=== PATIENT | female | born 1960 | race Asian ===

== ENCOUNTER 2020-02-06 06:20 | Emergency (ER) | payer OTHER ==
[~2020-02-06] VITALS: Ht 162.6 cm; Wt 63.5 kg
--- NOTE | 2020-02-06 06:36 | NUR ---
ED Nurse Note: pt presents to ED c/o dizziness and WHITE that started when she woke up 2 hours ago, it led to her having many episodes of vomiting. pt states that it feels like the room is spinning, she needed a wheelchair assist because she felt weak on her feet, this is abnormal for her. pt denies taking any meds [employer], reports a h/o vertigo
[2020-02-06 06:38] VITALS: BP 137/77
[2020-02-06] MEDS ORDERED: Ondansetron ODT 8mg tab ORAL ONE (06:45)
[2020-02-06] MEDS ORDERED: Meclizine 25mg tab ORAL ONE (06:45)
[2020-02-06] MEDS ORDERED: MECLIZINE HCL25 MG ORAL (06:45)
--- NOTE | 2020-02-06 06:45 | Emergency Room Report ---
History of Present Illness General Chief Complaint: Dizziness Source: Patient Present Illness HPI 59-year-old female presents with another episode of vertigo she has a history of vertigo she states that today she woke up got up from bed around 6 AM felt the room violently spinning, severity was severe, lasting minutes, alleviating factors appear to be lying still and lying down aggravating factors are sudden movements she endorses nausea, no chest pain or shortness of breath patient presents for evaluation Allergies: Coded Allergies: No Known Allergies (Unverified , 02/06/20) Patient History Past Medical History: see triage record Reviewed Nursing Documentation: PMH: Agreed; PSxH: Agreed Review of Systems All Other Systems: negative except mentioned in HPI Physical Exam Vital Signs Date Time Temp Pulse Resp B/P (MAP) Pulse Ox O2 Delivery O2 Flow Rate FiO2 02/06/20 06:24 97.5 64 16 137/77 (97) 97 Room Air Sp02 EP Interpretation: reviewed, normal General Appearance: well appearing, no apparent distress, alert Head: normocephalic, atraumatic Eyes: bilateral eye PERRL, bilateral eye EOMI ENT: uvula midline, moist mucus membranes Neck: supple, thyroid normal, supple/symm/no masses Respiratory: lungs clear, no respiratory distress, no retraction, no accessory muscle use Cardiovascular #1: normal peripheral pulses, regular rate, rhythm, no edema, no gallop, no murmur Gastrointestinal: non tender, soft, no guarding, no rebound Musculoskeletal: normal inspection Neurologic: alert, motor strength/tone normal, director social III-XII nml as tested, oriented x3, cerebellar normal, responsive, nystagmus - Fatigable nystagmus to the right, normal gait, no pronator, other - Romberg negative Psychiatric: mood/affect normal Skin: no rash, warm/dry Medical Decision Making Diagnostic Impression: Primary Impression: Dizziness Additional Impression: Otitis media Qualified Codes: H65.191 - Other acute nonsuppurative otitis media, right ear ER Course 59-year-old female presents with dizziness that started at 6 AM aggravated positionally, differential diagnosis includes stroke, BPPV, otitis media Patient found to have some fluid, patient given Augmentin, patient also given meclizine, patient with resolution/improvement of her symptoms Patient able to ambulate better, counseled patient will provide antibiotics We will provide meclizine Strict return cautions were discussed no evidence of posterior stroke disposition home with return precautions follow-up with PCP Laboratory Tests Test 02/06/20 07:05 White Blood Count 8.1 K/UL (4.8-10.8) Red Blood Count 4.26 M/UL (4.20-5.40) Hemoglobin 13.8 G/DL (12.0-16.0) Hematocrit 40.6 % (37.0-47.0) Mean Corpuscular Volume 95 FL (80-99) Mean Corpuscular Hemoglobin 32.4 PG (27.0-31.0) H Mean Corpuscular Hemoglobin Concent 33.9 G/DL (32.0-36.0) Red Cell Distribution Width 10.6 % (11.6-14.8) L Platelet Count 228 K/UL (150-450) Mean Platelet Volume 5.8 FL (6.5-10.1) L Neutrophils (%) (Auto) 69.3 % (45.0-75.0) Lymphocytes (%) (Auto) 22.6 % (20.0-45.0) Monocytes (%) (Auto) 5.8 % (1.0-10.0) Eosinophils (%) (Auto) 1.0 % (0.0-3.0) Basophils (%) (Auto) 1.4 % (0.0-2.0) Prothrombin Time 9.6 SEC (9.30-11.50) Prothrombin Time INR 0.9 (0.9-1.1) Activated Partial Thromboplast Time 24 SEC (23-33) Sodium Level 140 MMOL/L (136-145) Potassium Level 4.1 MMOL/L (3.5-5.1) Chloride Level 106 MMOL/L (98-107) Carbon Dioxide Level 22 MMOL/L (21-32) Anion Gap 13 mmol/L (5-15) Blood Urea Nitrogen 21 mg/dL (7-18) H Creatinine 1.1 MG/DL (0.55-1.30) Estimate Glomerular Filtration Rate 50.7 mL/min (>60) Glucose Level 121 MG/DL (74-106) H Calcium Level 9.0 MG/DL (8.5-10.1) Total Bilirubin 0.3 MG/DL (0.2-1.0) Aspartate Amino Transferase (AST) 25 U/L (15-37) Alanine Aminotransferase (ALT) 30 U/L (12-78) Alkaline Phosphatase 88 U/L (46-116) Troponin I 0.011 ng/mL (0.000-0.056) Total Protein 7.8 G/DL (6.4-8.2) Albumin 3.4 G/DL (3.4-5.0) Globulin 4.4 g/dL Albumin/Globulin Ratio 0.8 (1.0-2.7) L Rhythm Strip Diag. Results Rhythm Strip Time: 08:02 EP Interpretation: yes Rate: 66 Rhythm: NSR, no PVC's, no ectopy CT/MRI/US Diagnostic Results CT/MRI/US Diagnostic Results : Impression Preliminary Findings Only See Final Report For Complete Findings CT HEAD Without Contrast: No acute intracranial process. Chronic volume loss in the bifrontal lobes. Fluid in the right mastoid air cells. Radiologist: Nitish Lopez M.D. Study ready at 07:29 and initial results transmitted at 07:41 Last Vital Signs Date Time Temp Pulse Resp B/P (MAP) Pulse Ox O2 Delivery O2 Flow Rate FiO2 02/06/20 06:38 64 16 Room Air 02/06/20 06:38 97.5 137/77 97 Disposition: HOME, SELF-CARE Condition: Stable Scripts Amoxicillin/Potassium Clav 875-125* (AUGMENTIN 875-125 TABLET*) 1 Each Tablet 1 TAB ORAL TWICE A DAY, #20 TAB Prov: Shiv Garrison MD 02/06/20 Meclizine Hcl* (MECLIZINE*) 25 Mg Tablet 25 MG ORAL THREE TIMES A DAY PRN for for dizziness, #30 TAB Prov: Shiv Garrison MD 02/06/20 Referrals: [facility] R[facility] Patient Instructions: Otitis Media With Effusion, Vertigo Additional Instructions: The patient was provided with discharge instructions, notified to follow-up with a primary care doctor and or specialist in the next 24-48 hours, and to return to the ED if they have worsening of their symptoms. Please note that this report is being documented using [employer] technology. This can lead to erroneous entry secondary to incorrect interpretation by the dictating instrument. Shiv Garrison MD 10, 2020 06:45
[2020-02-06] MEDS ORDERED: DiphenhydrAMINE 50mg/ml Inj IVP ONE (07:00)
[2020-02-06] MEDS ORDERED: Metoclopramide 10mg/2ml Inj IVP ONE (07:00)
--- NOTE | 2020-02-06 07:07 | NUR ---
HAND-OFF: Report given to MEHUL Richey.
--- NOTE | 2020-02-06 07:10 | NUR ---
ED Nurse Note: Pt taken to CT.
--- NOTE | 2020-02-06 07:25 | NUR ---
ED Nurse Note: Pt returned from CT.
[2020-02-06 07:27] LABS: BASOPHILS % (AUTO) 1.4 % (0.0-2.0); HEMATOCRIT 40.6 % (37.0-47.0); HEMOGLOBIN 13.8 G/DL (12.0-16.0); LYMPHOCYTES % (AUTO) 22.6 % (20.0-45.0); MEAN CORPUSCULAR VOLUME 95 FL (80-99); MONOCYTES % (AUTO) 5.8 % (1.0-10.0); NEUTROPHILS % (AUTO) 69.3 % (45.0-75.0); PLATELET COUNT 228 K/UL (150-450); RED BLOOD COUNT 4.26 M/UL (4.20-5.40); RED CELL DISTRIBUTION WIDTH 10.6 % (11.6-14.8); WHITE BLOOD COUNT 8.1 K/UL (4.8-10.8)
[2020-02-06 07:33] LABS: INR 0.9 (0.9-1.1)
[2020-02-06 07:40] LABS: ANION GAP 13 mmol/L (5-15); BLOOD UREA NITROGEN 21 mg/dL (7-18); CARBON DIOXIDE 22 MMOL/L (21-32); CHLORIDE 106 MMOL/L (98-107); CREATININE 1.1 MG/DL (0.55-1.30); POTASSIUM 4.1 MMOL/L (3.5-5.1); SODIUM 140 MMOL/L (136-145)
--- NOTE | 2020-02-06 07:42 | Diagnostic Imaging Report ---
Indications: Altered mental status Technique: Spiral acquisitions obtained through the brain. Angled axial and coronal 5 x 5 mm slices were reconstructed. Total dose length product 1018 mGycm. CTDI vol(s) 53 mGy. Dose reduction achieved using automated exposure control Comparison: None. Findings: The ventricles are normal in caliber. There is mild age-related frontal volume loss. No acute intracranial hemorrhage or edema. No mass effect or midline shift. There is some periventricular deep white matter low-attenuation, consistent with chronic microvascular ischemic change. Normal davis-white differentiation otherwise. There is chronic appearing right-sided mastoid sclerosis. There is minimal sphenoid sinus mucosal disease. The orbits are unremarkable. Impression: Mild age-related volume loss. Negative for acute intracranial bleed or mass effect Minimal sinus and right mastoid disease This agrees with the preliminary interpretation provided overnight by [facility]. The CT scanner at [facility] is accredited by the [employer] and the scans are performed using protocols designed to limit radiation exposure to as low as reasonably achievable to attain images of sufficient resolution adequate for diagnostic evaluation.
[2020-02-06 07:45] LABS: ALANINE AMINOTRANSFERASE 30 U/L (12-78); ALBUMIN 3.4 G/DL (3.4-5.0); ALBUMIN/GLOBULIN RATIO 0.8 (1.0-2.7); ALKALINE PHOSPHATASE 88 U/L (46-116); ASPARTATE AMINO TRANSFERASE 25 U/L (15-37); BILIRUBIN,TOTAL 0.3 MG/DL (0.2-1.0)
[2020-02-06] MEDS ORDERED: Augmentin 875mg Tab ORAL ONE (07:45)
[2020-02-06] MEDS ORDERED: AUGMENTIN 875-1 EAC1 ORAL (08:02)
--- NOTE | 2020-02-06 08:18 | NUR ---
ER DISCHARGE NOTE: Patient is cleared to be discharged per ERMD, pt is aox4, on room air, with stable vital signs. pt was given dc and prescription instructions, pt was able to verbalize understanding, pt id band and iv site removed without complications. pt is able to ambulate with steady gait. pt took all belongings. Pt being picked up by . Dr Garrison saw pt walking and ok to D/C.
[2020-02-06 08:19] VITALS: BP 133/75
== END 2020-02-06 08:19 | disposition home or self-care (01) ==
LOC: EMR 06:45
DX: R42 Dizziness and giddiness (principal); H65.191 Other acute nonsuppurative otitis media, right ear
CPT/HCPCS: 36415; 70450; 80053; 84484; 85025; 85610; 85730; 96361; 96374; 96375; 99284; J1200; J2765; J7030; Q0162; S0028

== ENCOUNTER 2020-11-29 20:42 | Emergency (ER) | payer OTHER ==
[~2020-11-29] VITALS: Ht 162.6 cm; Wt 61.2 kg
[~2020-11-29 20:42] MED LIST: AUGMENTIN 875-1 EAC1 ORAL; BENTYL10 MG ORAL; MECLIZINE HCL25 MG ORAL; PEPCID20 MG ORAL; ZOFRAN ODT4 MG ORAL
--- NOTE | 2020-11-29 21:07 | Emergency Room Report ---
History of Present Illness General Chief Complaint: Lower Extremity Injury Present Illness HPI 60-year-old female here with left ankle pain after mechanical fall earlier this morning. Patient says that she fell and it with the rolled her left ankle. She said that she heard a "pop" and has been unable to walk since then. She has tried compression and ice and elevation without much relief. No focal numbness or weakness. She did not hit her head or lose consciousness when she fell. 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 COVID-19 Screening: Negative COVID-19 COVID-19 Testing Source: [place] Nursing Documentation-[facility] Past Medical History Deferred: Patient Unconscious Review of Systems All Other Systems: negative except mentioned in HPI Physical Exam Vital Signs Date Time Temp Pulse Resp B/P (MAP) Pulse Ox O2 Delivery O2 Flow Rate FiO2 11/29/20 20:54 98.4 65 20 143/62 (89) 100 Room Air Sp02 EP Interpretation: reviewed, normal General Appearance: no apparent distress, alert, non-toxic Head: normocephalic, atraumatic Eyes: bilateral eye normal inspection, bilateral eye PERRL ENT: hearing grossly normal, normal pharynx, no angioedema, normal voice Neck: full range of motion, supple/symm/no masses Respiratory: chest non-tender, lungs clear, normal breath sounds, speaking full sentences Cardiovascular #1: regular rate, rhythm, no edema Cardiovascular #2: 2+ carotid (R), 2+ carotid (L), 2+ radial (R), 2+ radial (L), 2+ dorsalis pedis (R), 2+ dorsalis pedis (L) Gastrointestinal: normal bowel sounds, non tender, soft, non-distended, no guarding, no rebound Rectal: deferred Genitourinary: normal inspection, no CVA tenderness Musculoskeletal: back normal, other - Diffuse swelling and ecchymosis of the right ankle. DP and PT pulses intact. Normal capillary refill. Normal range of motion of the toes Neurologic: alert, motor strength/tone normal, oriented x3, sensory intact, re sponsive, speech normal Psychiatric: judgement/insight normal, memory normal, mood/affect normal, no suicidal/homicidal ideation Lymphatic: no adenopathy Medical Decision Making Diagnostic Impression: Primary Impression: Ankle fracture, bimalleolar, closed ER Course 60-year-old female here after she rolled her ankle. Patient was neurovascularly intact and hemodynamically stable in the emergency department. She had swelling of her ankle diffusely. X-ray revealed fractures of the distal tibia and fibula without any displacement. Splint note: Post mold short lower extremity splint with sugar tong splint placed. Patient was neurovascular intact before and after the splint was placed. Splint placed as described above. Patient tolerated procedure well. She was given crutches and instructed on usage. She was given information to follow-up with orthopedic surgery. Told to come back with any worsening pain or swelling. She expressed understanding and was discharged. X-ray right ankle: Transverse nondisplaced fracture of distal fibula and distal tibia Last Vital Signs Date Time Temp Pulse Resp B/P (MAP) Pulse Ox O2 Delivery O2 Flow Rate FiO2 11/29/20 20:54 98.4 65 20 143/62 (89) 100 Room Air Scripts Hydrocodone Bit/Acetaminophen 5-325* (NORCO 5-325 TABLET*) 1 Each Tablet 1 TAB ORAL Q4H PRN for For Pain, #10 TAB Prov: Reji Goldstein M.D. 11/29/20 Reji Goldstein M.D. Nov 29, 2020 21:07
--- NOTE | 2020-11-29 21:08 | NUR ---
ED Nurse Note: pt presents to ED s/p fall this AM. pt reports that she heard a "pop" when she was trying to lift her dog this AM. pt states that it hurts to bear weight, there is bruising and swelling noted to the R ankle, skin is still intact
[2020-11-29] MEDS: HYDROcodone/Acetamin 5/325 tab ORAL ONE (21:13)
[2020-11-29] MEDS ORDERED: NORCO 5-325 TA1 EAC1 ORAL (21:43)
--- NOTE | 2020-11-29 21:47 | NUR ---
ED Nurse Note: pt's R lower extremity placed in posterior sugar-tong splint. pt tolerated well
--- NOTE | 2020-11-29 21:50 | NUR ---
ED Nurse Note: pt given crutch use instructions with demonstration teach back
[2020-11-29 21:55] VITALS: BP 143/62
--- NOTE | 2020-11-29 21:55 | NUR ---
ER DISCHARGE NOTE: Patient is cleared to be discharged per ERMD, pt is aox4, on room air, with stable vital signs. pt was given dc and prescription instructions, pt was able to verbalize understanding, pt id band removed without complications. pt is able to ambulate with steady gait. pt took all belongings, was picked up bykaroline sena
== END 2020-11-29 21:55 | disposition home or self-care (01) ==
LOC: EMR 21:10
DX: S82.64XA Nondisplaced fracture of lateral malleolus of right fibula, initial encounter for closed fracture (principal); S82.844A Nondisplaced bimalleolar fracture of right lower leg, initial encounter for closed fracture; W01.0XXA Fall on same level from slipping, tripping and stumbling without subsequent striking against object, initial encounter; Y93.9 Activity, unspecified; Y92.9 Unspecified place or not applicable
CPT/HCPCS: 29515; 99282